=== PATIENT | female | born 1980 | race Caucasian/White ===

== ENCOUNTER → 2017-09-11 | Outpatient (CLI) | payer BC ==
[~2017-09-11] MED LIST: LEVO150T PO; MTR600X PO; PREN1TAB29
== END | disposition home or self-care (01) ==
LOC: C.PAPS 12:34
PROVIDERS: ATTEND Obstetrics & Gynecology
DX: Z01.419 Encounter for gynecological examination (general) (routine) without abnormal findings (principal)

== ENCOUNTER → 2017-10-17 | Outpatient (CLI) | payer BC | END | disposition home or self-care (01) | LOC: C.LAB 07:11 | PROVIDERS: ATTEND Nutritionist | DX: R53.83 Other fatigue (principal) ==